=== PATIENT | female | born 1960 | race Caucasian/White ===

== ENCOUNTER → 2016-09-12 | Outpatient (CLI) | payer BC | LOC: BHSO 13:08 | DX: F41.1 Generalized anxiety disorder (principal) | CPT/HCPCS: 90791-AI ==

== ENCOUNTER → 2017-05-16 | Outpatient (CLI) | payer BC | LOC: MC.RAD 14:00 | DX: Z12.31 Encounter for screening mammogram for malignant neoplasm of breast (principal) ==

== ENCOUNTER → 2019-02-16 | Outpatient (CLI) | payer BC | LOC: MC.RAD 14:45 | DX: Z12.31 Encounter for screening mammogram for malignant neoplasm of breast (principal) ==

== ENCOUNTER → 2019-03-19 | Outpatient (CLI) | payer BC | LOC: COL.VAS 09:41 | DX: M79.89 Other specified soft tissue disorders (principal) ==

== ENCOUNTER → 2019-07-27 | Outpatient (CLI) | payer BC | LOC: COL.VAS 14:39 | DX: Z13.6 Encounter for screening for cardiovascular disorders (principal); M79.89 Other specified soft tissue disorders ==

== ENCOUNTER 2019-09-09 10:15 | Outpatient (RCR) | payer BC | END 2019-11-15 | disposition home or self-care (01) | LOC: WSPT | DX: M25.561 Pain in right knee (principal); Z96.651 Presence of right artificial knee joint | CPT/HCPCS: G0283-GP ==

== ENCOUNTER 2020-01-21 13:45 | Outpatient (RCR) | payer BC | END 2020-03-01 | disposition home or self-care (01) | LOC: WSPT | DX: M25.561 Pain in right knee (principal); Z96.651 Presence of right artificial knee joint ==

== ENCOUNTER → 2020-05-16 | Outpatient (CLI) | payer BC | LOC: MC.RAD 04-11 13:45 | DX: Z12.31 Encounter for screening mammogram for malignant neoplasm of breast (principal); N63.21 Unspecified lump in the left breast, upper outer quadrant ==

== ENCOUNTER → 2020-05-24 | Outpatient (CLI) | payer BC | LOC: MC.RAD 11:00 | DX: N60.12 Diffuse cystic mastopathy of left breast (principal) ==

== ENCOUNTER → 2020-12-04 | Outpatient (CLI) | payer BC | LOC: MC.RAD 08:42 | DX: N63.20 Unspecified lump in the left breast, unspecified quadrant (principal); N64.9 Disorder of breast, unspecified; R92.8 Other abnormal and inconclusive findings on diagnostic imaging of breast ==

== ENCOUNTER → 2022-08-22 | Outpatient (CLI) | payer BC | LOC: COL.RAD 14:36 | DX: M47.817 Spondylosis without myelopathy or radiculopathy, lumbosacral region (principal); M43.9 Deforming dorsopathy, unspecified ==

== ENCOUNTER → 2022-08-22 | Outpatient (CLI) | payer BC | LOC: MHCPAIN 13:03 | DX: M54.16 Radiculopathy, lumbar region (principal); M47.816 Spondylosis without myelopathy or radiculopathy, lumbar region; M43.9 Deforming dorsopathy, unspecified | CPT/HCPCS: G0463 ==

== ENCOUNTER 2023-05-08 10:45 | Outpatient (RCR) | payer BC | END 2023-05-29 | disposition home or self-care (01) | LOC: PT.GENESIS | DX: M62.830 Muscle spasm of back (principal) ==